=== PATIENT | male | born 1980 | race Caucasian/White ===

== ENCOUNTER 2020-12-02 09:11 | Emergency (ER) | payer OTHER, SELFPAY ==
--- NOTE | ~2020-12-02 | XR_ITS ---
EXAMINATION: XR elbow RT min 3V DATE: 12/02/2020 09:38 INDICATION: Right elbow pain and swelling. TECHNIQUE: 4 views of right elbow were obtained. COMPARISON: None. FINDINGS: Bone alignment is normal. There is a nondisplaced fracture of the radial head. The elbow luz maria int space is normal. There is an enthesophyte at olecranon. There is a large elbow joint effusion. IMPRESSION: 1. Nondisplaced radial head fracture. 2. Large elbow joint effusion. Reviewed, dictated and finalized at location A.
[2020-12-02 09:21] VITALS: BP 151/101; PULSE 82; RESP 18; TEMP 36.4; O2SAT 100
--- NOTE | 2020-12-02 11:04 | ED.GENADULT ---
HPI - General Adult General Chief complaint: Extremity Injury, Upper <Jono Steve PA-C - Last Filed: 12/02/20 11:22> Stated complaint: elbow injury <Jono Steve PA-C - Last Filed: 12/02/20 11:22> Time Seen by Provider: 12/02/20 09:51 <Jono Steve PA-C - Last Filed: 12/02/20 11:22> Source: patient <Jono Steve PA-C - Last Filed: 12/02/20 11:22> Mode of arrival: ambulatory <Jono Steve PA-C - Last Filed: 12/02/20 11:22> Limitations: no limitations <Jono Steve PA-C - Last Filed: 12/02/20 11:22> History of Present Illness HPI narrative: Patient is a 40-year-old male who presents to emergency department noting right elbow injury that occurred yesterday while picking up a heavy object when he felt a sharp pain and a pop in the elbow with swelling and tenderness patient denies any other direct injury or trauma. <Jono Steve PA-C - Last Filed: 12/02/20 11:22> Related Data Allergies/adverse reactions: Allergies Allergy/AdvReac Type Severity Reaction Status Date / Time No Known Allergies Allergy Verified 12/02/20 10:15 <Jono Steve PA-C - Last Filed: 12/02/20 11:22> Review of Systems Review of Systems: All systems reviewed & are unremarkable except as noted in HPI and below <Jono Steve PA-C - Last Filed: 12/02/20 11:22> FOR[facility]LY [facility], [facility] Past Medical History Medical History: Medical History BMI 37.0-37.9, adult Tonsillectomy planned <FABRICIO Yao Last Filed: 12/02/20 11:22> Family History Family History: Family History Father Hypertension Mother No problems noted. Sibling No problems noted. Other Diabetes mellitus <Jono Steve PA-C - Last Filed: 12/02/20 11:22> Social History Social History: Social History Smoking status: Current some day smoker (smokes only if drinking etoh) Alcohol intake: current <Jono Steve PA-C - Last Filed: 12/02/20 11:22> Exam Narrative: Exam Narrative: GENERAL: Well-appearing, well-nourished, and in no acute distress. HEAD: Normocephalic, atraumatic. EYES: PERRLA and EOMI. ENT: Nares clear, no rhinorrhea or epistaxis. Mucous membranes moist. EXTREMITIES: Normal range of motion. No edema. Patient with bruising swelling and tenderness along the lateral aspect of the elbow with swelling throughout the joint SKIN: Warm, dry, no rash. NEURO: No focal deficits. Alert and oriented x3. Neurovascularly intact. Capillary refill less than 2 seconds PSYCH: Normal mood and affect. <Jono Steve PA-C - Last Filed: 12/02/20 11:22> Course Course Emergency Course: Patient in the ER found to have radial head fracture internal derangement right elbow placed in long-arm splint referred to orthopedic surgery discussion was made with orthopedic surgery patient agrees with this plan <Jono Steve PA-C - Last Filed: 12/02/20 11:22> Consultations Consultation #1: Spoke with Dr. Clemens regarding the case he will follow the patient in clinic <Jono Steve PA-C - Last Filed: 12/02/20 11:22> Date: 12/02/20 <FABRICIO Yao Last Filed: 12/02/20 11:22> Time: 11:20 <FABRICIO Yao Last Filed: 12/02/20 11:22> Vital Signs Vital signs: Vital Signs Temperature 97.6 F 12/02/20 09:21 Pulse Rate 82 12/02/20 09:21 Respiratory Rate 18 12/02/20 09:21 Blood Pressure 151/101 H 12/02/20 09:21 Pulse Oximetry 100 12/02/20 09:21 Temperature 97.5 F L 12/02/20 11:49 Pulse Rate 92 12/02/20 11:49 Respiratory Rate 18 12/02/20 11:49 Blood Pressure 158/100 H 12/02/20 11:49 Pulse Oximetry 100 12/02/20 11:49 <Jono Steve PA-C - Last Filed: 12/02/20 11:22> Vital Signs Temperature 97.6 F 12/02
[2020-12-02] MEDS: KETOROLAC (*BKC) 60 MG/2 ML VIAL IM (11:06)
[2020-12-02 11:49] VITALS: BP 158/100; PULSE 92; RESP 18; TEMP 36.4; O2SAT 100
--- NOTE | 2020-12-02 11:52 | PC.NURSE ---
Late entry@@@@@ Long arm splint was applied to pts arm.
== END 2020-12-02 11:52 | disposition home or self-care (01) ==
PROVIDERS: Emergency Provider General Practice; PCP Family Medicine
DX: S52.121A Displaced fracture of head of right radius, initial encounter for closed fracture (principal); X50.9XXA Other and unspecified overexertion or strenuous movements or postures, initial encounter
CPT/HCPCS: 29105; 73080; 96372; 99284; A4565; J1885